=== PATIENT | female | born 1965 | race Caucasian/White ===

== ENCOUNTER → 2017-02-13 | Outpatient (CLI) | payer BC ==
[~2017-02-13] MED LIST: AMBIEN 10MG TAB10 MG PO; AZITHROMYC200 MG/51 PO; DILAUDID2 MG PO; DILAUDID4 MG PO; MACROBID 100MG100 M1 PO; MACROBID 100MG100 MG PO; MAXZIDE 50 MG-71 TAB PO; NEXIUM40 MG/PACK PO; PHENERGAN120 ML/BOT PO; PROAIR HFA0.09 MG/AC IH; QVAR0.08 MG/AC IH; ST. JOHN'S WOR150 MG PO; SYNTHROID 0.1M0.1 MG PO
--- NOTE | 2017-02-18 08:15 | RADIOLOGY REPORT PS360 ---
DIG MAMM-SCREEN DEANDRE W/CAD CAD Screening COMPARISON: Digital mammograms 11/16/2015 and 08/31/2014 INDICATION: There is no personal or family history of breast cancer TECHNIQUE: Standard CC and MLO images were obtained. R2 CAD reviewed. FINDINGS: Mild to moderate scattered fibroglandular densities are seen throughout both breasts with no suspicious lesion seen in either breast. The findings are bilateral and symmetrical. There are no suspicious microcalcifications. IMPRESSION: Fibrofatty parenchyma with no suspicious lesion seen recommend yearly follow-up BI-RADS CATEGORY: 1_Negative RECOMMENDED FOLLOWUP: 12M 12 MONTH FOLLOW-UP (A letter has been sent to the patient regarding results of the study.)
== END ==
LOC: RAD 11:00
DX: Z12.31 Encounter for screening mammogram for malignant neoplasm of breast (principal); N95.1 Menopausal and female climacteric states
CPT/HCPCS: G0202